=== PATIENT | female | born 1995 | race Caucasian/White ===

== ENCOUNTER 2024-04-05 16:24 | Inpatient (IN) | payer OTHER ==
[2024-04-05] MEDS ORDERED: CARBOPROST TROMETHAMINE 250 MCG/ML 1 ML AMP IM PRN (17:04)
[2024-04-05] MEDS ORDERED: TERBUTALINE 1 MG/ML VIAL SQ PRN (17:04)
[2024-04-05] MEDS ORDERED: miSOPROStoL 200 MCG TAB RECTAL PRN (17:04)
[2024-04-05] MEDS ORDERED: miSOPROStoL 200 MCG TAB PO PRN (17:04)
[2024-04-05] MEDS ORDERED: TRANEXAMIC 1,000 MG/100ML-NACL 1,000 MG in EMPTY BAG 1 BAG IV PRN (17:04)
[2024-04-05] MEDS ORDERED: METHYLERGONOVINE 0.2 MG/ML 1 ML AMP IM PRN (17:04)
[2024-04-05] MEDS ORDERED: LIDOCAINE 0.5% (PF) 5 MG/ML (50 ML SDV) SQ PRN (17:04)
[2024-04-05] MEDS ORDERED: OXYTOCIN 10 UNIT/ML 1 ML VIAL IM PRN (17:04)
[2024-04-05] MEDS: LACTATED RINGERS 1,000 ML IV SCH (17:34)
[2024-04-05 17:43] LABS: Basophils % (A) 0 %; Eosinophils # (A) 0.2 k/uL (0-0.7); Eosinophils % (A) 1 %; HCT 35.2 % (34.0-46.0); HGB 12.1 gm/dL (11.4-16.0); Lymphocytes # (A) 1.5 k/uL (1.0-4.8); Lymphocytes % (A) 15 %; MCH 30.4 pg (25.0-35.0); MCHC 34.3 g/dL (31.0-37.0); MCV 88.5 fL (80.0-100.0); Mean Platelet Volume 8.2; Monocytes # (A) 0.5 k/uL (0-1.0); Monocytes % (A) 5 %; Neutrophils # (A) 8.1 k/uL (1.3-7.7); Neutrophils % (A) 78 %; Platelet Count 247 k/uL (150-450); RBC 3.97 m/uL (3.80-5.40); WBC 10.4 k/uL (3.8-10.6)
--- NOTE | 2024-04-05 17:47 | P.HPOB ---
History of Present Illness H&P Date: 04/05/24 Chief Complaint: IUP at 40-1/7 weeks no care This is a 29-year-old 3 para 2-0-0-2 at 40-1/7 weeks that presents to labor and delivery with complaints of spontaneous rupture of membranes around midnight. Patient states that the fluid was clear in nature. Patient did have 1 visit at [facility] with an ultrasound confirming EDC of 725. Patient notes good movement. Notes an occasional contraction. AmniSure positive in triage No labs are available at this time as they were not drawn at the office visit. 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 #1 7+ pounds, denies GDM/hypertension #2 7 pounds , circumvallate placenta Review of Systems Constitutional: Denies chills, Denies fatigue, Denies fever Ears, nose, mouth and throat: Denies headache Cardiovascular: Denies leg edema Respiratory: Denies dyspnea Gastrointestinal: Denies nausea, Denies vomiting Genitourinary: Reports Past Medical History Past Medical History: No Reported History History of Any Multi-Drug Resistant Organisms: None Reported Past Surgical History: No Surgical Hx Reported Smoking Status: Never smoker Medications and Allergies Home Medications Medication Instructions Recorded Confirmed Type Vit No.179/Iron/Folic 1 each PO DAILY 04/05/24 04/05/24 History [ Tablet] Allergies Allergy/AdvReac Type Severity Reaction Status Date / Time No Known Allergies Allergy Verified 04/05/24 16:36 Exam Osteopathic Statement: *. No significant issues noted on an osteopathic structural exam other than those noted in the History and Physical/Consult. Intake and Output 04/05/24 04/05/24 04/05/24 06:59 14:59 22:59 Other: Weight 83.915 kg Targeted physical exam is performed on this date and General is well-nourished well-developed female in no acute distress, breathing is nonlabored, heart has a regular rate and rhythm, abdomen is gravid, on cervical exam she is 5-6/80/-2, heart tones noted to be category 1 and she is not jeff Assessment and Plan (1) Post-dates Current Visit: Yes Status: Acute Code(s): O48.0 - POST-TERM SNOMED Code(s): 40866723 (2) Limited care Current Visit: Yes Status: Acute Code(s): O09.30 - SUPRVSN OF PREG W INSUFFICIENT ANTENAT CARE, UNSP TRIMESTER SNOMED Code(s): 423606961 Plan: 29-year-old G3, P2 presents with complaints of spontaneous rupture of membranes around midnight. Patient is admitted IV antibiotics are begun given length of time since rupture of membranes and unknown GBS status. labs are drawn. Patient is requesting epidural when labs are completed. Anticipate spontaneous vaginal delivery
[2024-04-05 17:49] LABS: Appearance,Urine Clear (Clear); Bacteria,Urine Rare /hpf; Bilirubin,Urine Negative (Negative); Blood,Urine Moderate (Negative); Color,Urine Light Yellow; Glucose,Urine (UA) Negative (Negative); Hyaline Casts,Urine 1 /lpf (0-2); Ketones,Urine 1+ (Negative); Leukocyte Esterase,Urine Negative (Negative); Mucus,Urine Rare /hpf; Nitrite,Urine Negative (Negative); Protein,Urine Trace (Negative); RBC,Urine >182 /hpf (0-5); Specific Gravity,Urine 1.018 (1.001-1.035); Squamous Epithelial Cell,Urine 2 /hpf (0-4); Urobilinogen,Urine <2.0 mg/dL (<2.0); WBC,Urine 5 /hpf (0-5)
[2024-04-05] MEDS: AMPICILLIN 2,000 MG in SODIUM CHLORIDE 0.9% 100 ML IVPB STA (17:52)
[2024-04-05] MEDS ORDERED: SODIUM CHLORIDE 0.9% 250 ML BAG ONE (18:00)
[2024-04-05] MEDS ORDERED: fentaNYL (PF) 50 MCG/ML 5 ML AMP ONE (18:00)
[2024-04-05] MEDS ORDERED: ROPIVACAINE 5 MG/ML 30 ML VIAL ONE (18:00)
[2024-04-05 18:09] LABS: Amphetamine Screen,Urine Not Detected (NotDetected); Barbiturate Screen,Urine Not Detected (NotDetected); Benzodiazepines Screen,Urine Not Detected (NotDetected); Cocaine Screen,Urine Not Detected (NotDetected); Methadone Screen, Urine Not Detected (NotDetected); Opiate Screen,Urine Not Detected (NotDetected); Oxycodone Screen, Urine Not Detected (NotDetected); Phencyclidine Screen,Urine Not Detected (NotDetected); Tricyclic Antidepressant,Urine Not Detected (NotDetected); Urn Cannabinoid Scrn Detected (NotDetected)
[2024-04-05] MEDS: OXYTOCIN 30 UNITS/500 ML NS 30 UNIT in SALINE 1 500ML.BAG IV SCH (18:27)
[2024-04-05] MEDS ORDERED: SIMETHICONE 80 MG CHEWABLE PO PRN (20:52)
[2024-04-05] MEDS ORDERED: diphenhydrAMINE 50 MG/ML 1 ML VIAL IVP PRN ×2 (20:52)
[2024-04-05] MEDS ORDERED: BENZOCAINE/MENTHOL SPRAY 1 GM/SPRAY AEROSOL TOPICAL PRN ×2 (20:52→23:21)
[2024-04-05] MEDS ORDERED: diphenhydrAMINE 50 MG CAP PO PRN (20:52)
[2024-04-05] MEDS ORDERED: ACETAMINOPHEN TAB 325 MG TAB PO PRN (20:52)
[2024-04-05] MEDS ORDERED: diphenhydrAMINE 25 MG CAP PO PRN (20:52)
[2024-04-05] MEDS ORDERED: ZOLPIDEM 5 MG TAB PO PRN (20:52)
[2024-04-05] MEDS ORDERED: LANOLIN CREAM 1 GM TUBE TOPICAL PRN (20:52)
[2024-04-05] MEDS ORDERED: HYDROCORTISONE 2.5% RECTAL CREAM 30 GM TUBE RECTAL PRN (20:52)
--- NOTE | 2024-04-05 20:52 | P.PROBDLV ---
Vaginal Delivery Note - . Vaginal Delivery Note: Findings viable female delivered at 2027, weight of 6 pounds 2.8 ounces 29-year-old 4 para 2-0-1-2 presented to labor and delivery at 40-1/7 weeks with complaints of spontaneous rupture of membranes around midnight. Patient had limited to no care through this . Patient did have a first trimester ultrasound confirming a due date of 04/04. Patient was admitted rupture of membranes was confirmed via AmniSure. Patient was noted to be 4 to 5 cm. Patient did request epidural. Antibiotics begun secondary to unknown GBS status and longer rupture of membranes, epidural were placed by the anesthesia department. Patient progressed to complete began pushing and had normal spontaneous vaginal delivery of a viable female infant with a right compound hand at 2027, weight of 6 pounds 2.8 ounces, Apgars of 9 and 9 at 1 and 5 minutes respectively. After 2-minute delay the umbilical cord was doubly clamped and cut the placenta was delivered spontaneously intact with a three- vessel cord being noted. On inspection the patient's vaginal vault a first- degree vaginal laceration was appreciated this was repaired with 3-0 Rapide in a [id number] fashion. Uterus was noted to be firm and below the umbilicus, bladder was drained for approximately 400 cc of clear yellow urine via red rubber catheter All counts were to be correct x 2 at the end of the delivery. Patient and infant tolerated delivery well and are resting comfortably.
[2024-04-05] MEDS: AMPICILLIN 1,000 MG in SODIUM CHLORIDE 0.9% 50 ML IVPB SCH (23:52)
[2024-04-06 02:53] LABS: Hepatitis B Surface Antigen Nonreactive (Nonreactive)
[2024-04-06 05:02] LABS: HIV 2 AB Non-Reactive (Non-Reactive); HIV AB P24 Non-Reactive (Non-Reactive); HIV P24 AG Non-Reactive (Non-Reactive)
[2024-04-06] MEDS: IBUPROFEN 600 MG TAB PO SCH (05:27)
--- NOTE | 2024-04-06 06:27 | P.PNOBGVD ---
Subjective - Subjective Principal diagnosis: day #1 Interval history: Patient is doing well . She states her lochia is minimal to moderate. She is breast-feeding. is doing well. She denies concerns Patient reports: Reports appetite normal, Reports voiding normally, Reports pain well controlled, Reports ambulating normally : doing well, nursing well Objective - Latest Vital Signs Latest vital signs: Vital Signs Temp Pulse Resp BP Pulse Ox 04/06/24 04:00 97.9 F 85 16 136/80 04/06/24 00:00 98.6 F 70 16 125/62 04/05/24 22:40 98.6 F 64 16 129/64 04/05/24 22:25 50 L 16 127/67 04/05/24 22:10 54 L 16 113/56 04/05/24 21:55 64 16 118/71 04/05/24 21:40 90 16 138/66 04/05/24 21:25 72 16 122/65 04/05/24 21:10 69 16 120/60 04/05/24 20:55 76 16 132/64 04/05/24 20:40 98.4 F 96 16 134/68 04/05/24 17:36 97.5 F L 86 16 130/67 100 04/05/24 17:00 97.5 F L 86 16 130/67 100 Intake and Output 04/05/24 04/05/24 04/06/24 14:59 22:59 06:59 Intake Total 171.1 600 Output Total 865 Balance -693.9 600 Intake: Intake, IV Titration 171.1 Amount Oxytocin 30 Units/500 ml 171.1 Ns 30 unit In Saline 1 500ml.bag @ Per Protocol IV .Q0M [facility] Rx#:[id number] Oral 600 Output: Urine 500 Estimated Blood Loss 150 Output, Quantitative 215 Blood Loss Other: # Voids 1 1 Weight 83.915 kg - Exam Extremities: Present: normal, edema Abdomen: Present: normal appearance, soft Uterus: Present: normal, firm - Labs Labs: Abnormal Lab Results - Last 24 Hours (Table) 04/05/24 04/05/24 04/05/24 Range/Units 17:25 17:25 17:25 Neutrophils # 8.1 H (1.3-7.7) k/uL Urine Protein Trace H (Negative) Urine Ketones 1+ H (Negative) Urine Blood Moderate H (Negative) Urine RBC >182 H (0-5) /hpf Urine Bacteria Rare H (None) /hpf Urine Mucus Rare H (None) /hpf U Marijuana (THC) Screen Detected H (NotDetected) Rubella IgG Antibody 140.00 H (0.00-9.00) IU/mL Assessment and Plan (1) Post-dates Current Visit: Yes Status: Acute Code(s): O48.0 - POST-TERM SNOMED Code(s): 32815758 (2) Limited care Current Visit: Yes Status: Acute Code(s): O09.30 - SUPRVSN OF PREG W INSUFFICIENT ANTENAT CARE, UNSP TRIMESTER SNOMED Code(s): 692495289 (3) Normal spontaneous vaginal delivery Current Visit: Yes Status: Acute Code(s): O80 - ENCOUNTER FOR FULL-TERM UNCOMPLICATED DELIVERY SNOMED Code(s): 76140001 Plan: Patient is doing well . Continue routine care
[2024-04-06] MEDS: PRENATAL VIT-IRON-FOLIC ACID 1 EACH TABLET PO SCH (12:39)
[2024-04-06] MEDS: SENNOSIDES-DOCUSATE SODIUM 1 EACH TAB PO SCH (16:24)
[2024-04-07 09:53] VITALS: BP 114/71; PULSE 71; RESP 18; TEMP 97.5
--- NOTE | 2024-04-07 10:34 | P.DS ---
Providers Date of admission: 04/05/24 16:51 Expected date of discharge: 04/07/24 Attending physician: Hanh Gilliam Primary care physician: Stated None - Discharge Diagnosis(es) (1) Post-dates Current Visit: Yes Status: Acute (2) Limited care Current Visit: Yes Status: Acute (3) Normal spontaneous vaginal delivery Current Visit: Yes Status: Acute Hospital Course: This is a 29-year-old 4 now para 3-0-1-3 that presented to labor and delivery at 40-1/7 weeks with complaints of spontaneous rupture of membranes around midnight prior to admission. Patient did have 1 visit at [facility] for OB intake, first trimester ultrasound. Patient did not return for any further care. Patient states she had insurance reasons for not returning. Patient was admitted to labor and delivery and quickly requested epidural. Pitocin augmentation of labor was begun, patient progressed to complete began pushing and had a normal spontaneous vaginal delivery of a viable female infant at 2828, weight of 6 pounds 2.8 ounces, patient did sustain a first-degree vaginal laceration which was repaired with a [id number] suture of 3-0 Rapide. Patient's course has been uneventful. This day #2 she is ambulating and voiding without difficulty. She is tolerating a regular diet without nausea or vomiting. She states her pain is well- controlled. She would like discharge home later today. Patient Condition at Discharge: Good Plan - Discharge Summary New Discharge Prescriptions: No Action Vit No.179/Iron/Folic [ Tablet] 1 each PO DAILY Discharge Medication List Vit No.179/Iron/Folic [ Tablet] 1 each PO DAILY 04/05/24 [History] Follow up Appointment(s)/Referral(s): Hanh Gilliam DO [Doctor of Osteopathic Medicine] - 6 Weeks Patient Instructions/Handouts: Vaginal Delivery (DC), Vaginal Delivery (GEN) Activity/Diet/Wound Care/Special Instructions: No intercourse, or tub baths. Call with any fever, shakes or chills, with any pain not alleviated by over the counter meds, or with any questions or concerns. [id number] ibuprofen 600 mg or 3 tablets every 6 hours as needed for pain. Discharge Disposition: HOME SELF-CARE
[2024-04-08 12:58] LABS: C. trachomatis,PCR Negative (Negative)
[2024-04-08 13:04] LABS: N. gonorrhoeae,PCR Negative (Negative)
== END 2024-04-07 12:56 | disposition home or self-care (01) | DRG 807 ==
LOC: FBPOP 16:24 → 4FBP 16:51
PROVIDERS: ADMIT Obstetrics & Gynecology Obstetrics; ATTEND Obstetrics & Gynecology Obstetrics
PROC: 10E0XZZ Delivery of Products of Conception, External Approach (ICD-10-PCS; principal; 2024-04-05)
PROC: 0HQ9XZZ Repair Perineum Skin, External Approach (ICD-10-PCS; principal; 2024-04-05)
DX: O42.92 Full-term premature rupture of membranes, unspecified as to length of time between rupture and onset of labor (principal); O32.6XX0 Maternal care for compound presentation, not applicable or unspecified; O70.0 First degree perineal laceration during delivery; O48.0 Post-term pregnancy; Z86.32 Personal history of gestational diabetes; Z3A.40 40 weeks gestation of pregnancy; Z37.0 Single live birth
CPT/HCPCS: 59025; 80306; 81001; 84112; 85025; 86762; 86780; 86850; 86900; 86901; 87340; 87390; 87491; 87591; 99213